=== PATIENT | female | born 1985 | race Caucasian/White ===

== ENCOUNTER 2022-01-20 07:34 | Emergency (ER) | payer MEDICAID ==
[~2022-01-20] VITALS: Ht 162.6 cm; Wt 72.6 kg
--- NOTE | 2022-01-20 07:41 | NUR ---
[id number] HOME, C/O CHRONIC BACK PAIN. THIS MORNING "IM UNABLE TO MOVE" DENIES ANY RECENT INJURY, TO ER BED 11, HOOKED TO MONITOR, CHANGED TO HOSP GOWN, WARM BLANKET PROVIDED. PATIENT AAO x 4, RESPIRATIONS EVEN AND UNLABORED. AWAITING MD PERRY
--- NOTE | 2022-01-20 07:44 | NUR ---
DR CROWLEY AT BEDSIDE
[2022-01-20] MEDS ORDERED: HYDROCODONE/APAP 5/325MG TABLET ONE (07:56)
[2022-01-20] MEDS ORDERED: CYCLOBENZAPRINE 10 MG TABLET ONE (07:56)
[2022-01-20] MEDS ORDERED: CYCLOBENZAPRINE 10 MG TABLET PO ONE (08:00)
[2022-01-20] MEDS ORDERED: HYDROCODONE/APAP 5/325MG TABLET PO ONE (08:00)
[2022-01-20] MEDS ORDERED: IBUPROFEN 600 MG TABLET ONE (08:59)
[2022-01-20] MEDS ORDERED: MORPHINE SULFATE INJ 4 MG/ML DISP.SYRIN ONE (08:59)
[2022-01-20] MEDS ORDERED: MORPHINE SULFATE INJ 2 MG/ML DISP.SYRIN IM ONE (09:00)
[2022-01-20] MEDS ORDERED: IBUPROFEN 600 MG TABLET PO ONE (09:00)
[2022-01-20] MEDS ORDERED: HYDR-4209 PO (09:18)
[2022-01-20] MEDS ORDERED: METH4TAB17 PO ×2 (09:18→09:52)
[2022-01-20] MEDS ORDERED: CYCL5TAB PO ×2 (09:18→09:52)
[2022-01-20] MEDS ORDERED: IBUP-1955 PO ×2 (09:18→09:52)
[2022-01-20] MEDS ORDERED: OXYC-128 PO ×2 (09:36→09:52)
--- NOTE | 2022-01-20 10:03 | NUR ---
Patient discharged to home in stable condition. Written and verbal after care instructions given. Patient verbalizes understanding of instruction.
[2022-01-20 10:04] VITALS: BP 106/67
== END 2022-01-20 10:05 | disposition home or self-care (01) ==
LOC: ER 07:37
DX: M54.50 Low back pain, unspecified (principal); G89.29 Other chronic pain
CPT/HCPCS: 96372; 99284; J2270

== ENCOUNTER 2022-08-12 21:47 | Emergency (ER) | payer MEDICAID, OTHER ==
[~2022-08-12] VITALS: Ht 162.6 cm; Wt 72.6 kg
[~2022-08-12 21:47] MED LIST: CYCL5TAB PO; IBUP-1955 PO; METH4TAB17 PO; OXYC-128 PO
--- NOTE | 2022-08-12 22:50 | NUR ---
BIBFRROSALIE C/O BACK PAIN. PATIENT IS AAOX4. PLACED COMFORTABLY IN BED. VITALS CHECKED.
[2022-08-12] MEDS ORDERED: ONDANSETRON 4 MG TAB.RAPDIS SL ONE (23:00)
[2022-08-12] MEDS ORDERED: MORPHINE SULFATE INJ 2 MG/ML DISP.SYRIN IM ONE (23:00)
[2022-08-12] MEDS ORDERED: KETOROLAC TROMETHAMINE INJ 60 MG/2 ML VIAL IM ONE (23:00)
[2022-08-12] MEDS ORDERED: MORPHINE SULFATE INJ 4 MG/ML DISP.SYRIN ONE (23:06)
[2022-08-12] MEDS ORDERED: KETOROLAC TROMETHAMINE INJ 30 MG/ML VIAL ONE (23:06)
[2022-08-12] MEDS ORDERED: ONDANSETRON 4 MG TAB.RAPDIS ONE (23:06)
[2022-08-12] MEDS ORDERED: NAPR-1164 PO (23:38)
[2022-08-12] MEDS ORDERED: CYCL10TA9 PO (23:38)
[2022-08-12] MEDS ORDERED: HYDR-4303 PO (23:38)
[2022-08-13 00:10] VITALS: BP 134/70
--- NOTE | 2022-08-13 00:10 | NUR ---
Patient discharged to home in stable condition. Written and verbal after care instructions given. Patient verbalizes understanding of instruction.
== END 2022-08-13 00:15 | disposition home or self-care (01) ==
LOC: ER 21:48
DX: M54.50 Low back pain, unspecified (principal); G89.29 Other chronic pain; Z79.899 Other long term (current) drug therapy
CPT/HCPCS: 99284; 96372 ×2; J2270; J1885; Q0162

== ENCOUNTER 2022-08-31 19:13 | Emergency (ER) | payer OTHER ==
[~2022-08-31] VITALS: Ht 165.1 cm; Wt 70.3 kg
[~2022-08-31 19:13] MED LIST changes: +CYCL10TA9 PO; +HYDR-4303 PO; +NAPR-1164 PO
--- NOTE | 2022-08-31 19:42 | NUR ---
BIBFAMILY C/O N/S X 2 DAYS, PT STATED SHE FOUND OUT SHE IS 2 DAYS AGO. AMBULATORY, PLACED ON BED.
[2022-08-31] MEDS ORDERED: PYRIDOXINE HCL 50 MG TABLET PO STA (20:03)
--- NOTE | 2022-08-31 20:50 | NUR ---
Patient discharged to home in stable condition. Written and verbal after care instructions given. Patient verbalizes understanding of instruction.
[2022-08-31] MEDS ORDERED: METO-544 PO (20:51)
[2022-08-31] MEDS ORDERED: PYRI25TA4 PO (20:51)
[2022-09-01 00:04] VITALS: BP 115/62
== END 2022-08-31 20:50 | disposition home or self-care (01) ==
LOC: ER 19:14
DX: O21.0 Mild hyperemesis gravidarum (principal); G89.29 Other chronic pain; Z3A.00 Weeks of gestation of pregnancy not specified; Z79.899 Other long term (current) drug therapy

== ENCOUNTER 2025-08-03 13:44 | Emergency (ER) | payer OTHER ==
[~2025-08-03] VITALS: Ht 167.6 cm; Wt 64.0 kg
[~2025-08-03 13:44] MED LIST changes: +METO-544 PO; +PYRI25TA4 PO
[2025-08-03] MEDS ORDERED: ACETAMINOPHEN ES 500 MG TABLET ONE (14:49)
[2025-08-03] MEDS ORDERED: KETOROLAC TROMETHAMINE 15 MG/ML VIAL ONE (14:49)
[2025-08-03] MEDS: KETOROLAC TROMETHAMINE 15 MG/ML VIAL IM ONE (14:57)
[2025-08-03] MEDS: ACETAMINOPHEN ES 500 MG TABLET PO ONE (14:57)
[2025-08-03 16:18] VITALS: BP 119/75; TEMP 98; O2SAT 98
== END 2025-08-03 16:19 | disposition home or self-care (01) ==
LOC: ER 13:50
DX: T14.8XXA Other injury of unspecified body region, initial encounter (principal); M54.2 Cervicalgia; M54.9 Dorsalgia, unspecified; R07.9 Chest pain, unspecified; G89.29 Other chronic pain; Z79.891 Long term (current) use of opiate analgesic; V43.52XA Car driver injured in collision with other type car in traffic accident, initial encounter; Y93.89 Activity, other specified; Y92.488 Other paved roadways as the place of occurrence of the external cause; Y99.8 Other external cause status
CPT/HCPCS: 99284; 71045; 96372; 72040; 72100; 72070; 73502; 84703; J1885